=== PATIENT | female | born 1975 | race Caucasian/White ===

== ENCOUNTER 2024-10-03 15:29 | Outpatient (CLI) | payer BC, SELFPAY ==
--- NOTE | ~2024-10-03 | MR_ITS ---
MR breast BI wo/w con 10/08/2024 10:32 BRASS AND WIND INSTRUMENT REPAIRER INDICATION: High risk for breast cancer. History of right breast biopsy. TECHNIQUE: MRI of the breasts perform using standard protocol pre-and post IV contrast with the follo wing sequences: Axial T2 STIR, axial T1, axial vibrant T1 with fat suppression precontrast and multip hasic postcontrast. COMPARISON: Comparison to multiple prior studies sequentially, with oldest reviewed study dated 07/04. FINDINGS: Right breast: There are no abnormalities on the precontrast sequences. There is minimal александр kground parenchymal enhancement. There is a focal area of fat containing a tissue marker in the media l aspect of the right breast corresponding to prior lumpectomy site, most likely benign fat necrosis. No enhancing lesions following contrast administration. No areas of enhancement meeting threshold c riteria on CAD analysis. No evidence of signal abnormalities in the axillary or internal mammary nod e distributions. LEFT BREAST: No signal abnormalities on precontrast sequences. There is minimal background parenchym al enhancement. No enhancing lesions following contrast administration. No areas of enhancement me eting threshold criteria on CAD analysis. No evidence of signal abnormalities in the axillary or in ternal mammary node distributions.] IMPRESSION: 1: Right breast: Negative. No evidence of malignancy. BI-RADS category 2. Recommend annual mammo graphy follow-up. 2: Left breast: Negative. No evidence of malignancy. BI-RADS category 1. Recommend annual mammogr aphy follow-up. Follow-up MRI may be useful for supplementing mammographic evaluation as clinically indicated. Reviewed, dictated and finalized at location B. S AND WIND INSTRUMENT REPAIRER IMPRESSION: 1: Right breast: Negative. No evidence of malignancy. BI-RADS category 2. Recommend annual mammography follow-up. 2: Left breast: Negative. No evidence of malignancy. BI-RADS category 1. Re commend annual mammography follow-up. Follow-up MRI may be useful for supplementing mammographic evaluation as clinic ally indicated.
== END 2024-10-03 15:30 | disposition home or self-care (01) ==
PROVIDERS: PCP Nurse Practitioner; Visit Provider Surgery
DX: Z12.31 Encounter for screening mammogram for malignant neoplasm of breast (principal); Z98.890 Other specified postprocedural states; N60.91 Unspecified benign mammary dysplasia of right breast; N64.89 Other specified disorders of breast
CPT/HCPCS: 77049; A9577; C8908

== ENCOUNTER 2025-03-14 08:14 | Outpatient (CLI) | payer OTHER, SELFPAY ==
--- NOTE | ~2025-03-14 | MM_ITS ---
EXAMINATION: MM screening [facility] BI [facility] [place] HISTORY: Screening TECHNIQUE: Craniocaudal and mediolateral oblique 3-D tomosynthesis images were obtained and synthetic 2-D images were generated. CAD analysis was submitted and interpreted. COMPARISON: Comparison to multiple prior studies sequentially, with oldest reviewed study dated 07/04. BREAST PARENCHYMAL COMPOSITION: Not dense: There are scattered areas of fibroglandular density. FINDINGS: There is an area of fat necrosis in the lower inner quadrant of the right breast. There is no evidence of suspicious mass, calcification, or architectural distortion to suggest malignancy in e ither breast. There has been no suspicious interval change. IMPRESSION: 1. No mammographic evidence of malignancy. 2. Recommend routine screening mammography in one year. BI-RADS Category 2: Benign finding(s). Reviewed, dictated and finalized at location A.
--- OUTSIDE RECORDS SUMMARY | 2025-03-14 08:22 | XMS_ITS ---
Author Organization [facility] Address [address] [place], [place] [address] Care Team Providers Care Cook Railroad Name Role Phone SATURNINO SULAIMAN Unavailable [phone] Mary Howell Unavailable Unavailable REASON FOR VISIT orthotics Medications Medication SIG (Take, Route, Frequency, Duration) Notes Start Date End Date Status Wellbutrin Active Topamax Active B Complete Active Vital Signs Height 67 in 05/07/2024 Height-cm 170.18 cm 05/07/2024 Encounters Encounter Location Date Provider Diagnosis [facility] [address] [place], [place] [id number] 05/07/2024 SULAIMAN HERNANDEZ Posterior tibial tendinitis of left lower extremity M76.822 ; Hallux valgus (acquired), left foot M20.12 ; Flat foot [pes planus] (acquired), right foot M21.41 ; Pain in left foot M79.672 and Pain in right foot M79.671 Assessments Encounter Date Diagnosis (ICD Code) Assessment Notes Treatment Notes Treatment Clinical Notes Section Notes 05/07/2024 Posterior tibial tendinitis of left lower extremity (ICD-10 - M76.822) 05/07/2024 Hallux valgus (acquired), left foot (ICD-10 - M20.12) 05/07/2024 Flat foot [pes planus] (acquired), right foot (ICD-10 - M21.41) 05/07/2024 Pain in left foot (ICD-10 - M79.672) 05/07/2024 Pain in right foot (ICD-10 - M79.671) 05/07/2024 Other Orthotic casting: The patient was casted for functional orthotic devices. This was done in the subtalar joint neutral position in a non-weightbeari ng fashion. The patient will follow-up in 3 weeks time to be dispensed and fitted with the devices. Plan Of Treatment Treatment Notes Assessment Notes Other Orthotic casting: Th e patient was casted for functional orthotic devices. This was done in the subtalar joint neutral position in a non-weightbearing fashion. The patient will follow-up in 3 weeks time to be dispensed and fitted with the devices. Progress Notes * LYLEIshaDOB:1975 (49 yo F)Acc No.[id number]:05/07/2024 Patient: Isha FORTE Provider: Mady Hernandez DPM :1975 A ge:48 Y S ex:Female Date:05/07/2024 Address: [address] [place], [place] [id number] Subjective: * Chief Complaints: * O rthotics * HPI: H PI: Follow Up Visit P atient presents for follow-up visit for orthotics. Patient was given X-rays at the last visit and was recommended orthotics, but she needed to call her insurance first. Patient states that insurance will not pay for them if they say flat feet so she would like to talk about that with the doctor. MA: carlos. * ROS: G eneral / Constitutional: Patient denies c hills, fever. E ndocrine: Patient denies e xcessive thirst, frequent urination. ? C ardiovascular: Patient denies s hortness of breath, chest pain. S kin: Patient denies m ole changes. * Medical History: * Surgical History: G all Bladder Breast Lump Removed appendectomy * Hospitalization/Major Diagno stic Procedure: * Family History: F ather: alive, diagnosed with Heart disease. M other: alive. * Medications: T akingB Complete Topamax Wellbutrin Medication List reviewed and reconciled with the patientTaking B Complete Taking Topamax Taking Wellbutrin Medication List reviewed and reconciled with the patient Objective: * Vitals: H t: 67 in, Ht-cm: 170.18 cm. * Examination: P hysical Examination: Gen: T he patient is awake, alert, well developed, well groomed and well nourished. They are in no apparent distress. . Musc: F oot structure is planus . No abnormalities noted. Muscle strength is 5/5 to all joints bilaterally. Pain on palpation of left posterior tibial tendon. Limited range of motion noted at the first metatarsal phalangeal joint. Unable to perform single leg toe raise.. Derm: S kin is warm and dry, with no rashes, good skin turgor and normal hair distribution. . Neuro: G rossly intact to light touch bilateral.. Vasc: D orsalis pedis and posterior tibial pulses 2+ bilaterally. No edema noted. Capillary fill time < 3 seconds to all digits. . X -Ray: LEFT FOOT T here is no evidence of fracture, dislocation, or other osseous lesions. X-rays reveal an increased 1st intermetatarsal angle, lateral deviation of the hallux, lateral displacement of the sesamoids, and an enlarged medial prominence. . ? Assessment: * Assessment: 1. P osterior tibial tendinitis of left lower extremity - M76.822 (Primary) 2 .?Hallux valgus (acquired), left foot - M20.12 3 . F lat foot [pes planus] (acquired), right foot - M21.41 4 . P ain in left foot - M79.672 5 . P ain in right foot - M79.671 Plan: * Treatment: * Procedure Codes: 7 3630 X-RAY EXAM OF FOOT, Modifiers: LT L1902 AFO ANK GAUNTLT PREFAB W/FIT&ADJ, Modifiers: LT , [id number] FT INSRT REMV MOLD LNGTUDNL SUPP EA, Modifiers: RT , [id number] FT INSRT REMV MOLD LNGTUDNL SUPP EA, Modifiers: LT , GA * Billing Information: * Visit Code: 25685 Office Visit, New Pt., Level 3. * Procedure Codes: 01942 X-RAY EXAM OF FOOT. Modifiers: LT L1902 AFO ANK GAUNTLT PREFAB W/FIT&ADJ. Modifiers: LT, GA L3020 FT INSRT REMV MOLD LNGTUDNL SUPP EA. Modifiers: RT, GA L3020 FT INSRT REMV MOLD LNGTUDNL SUPP EA. Modifiers: LT, GA * Sign off status: Completed true * Provider: Mady Hernandez DPM Date: 0 05/07/2024 Generated for Raffi infante/Tami/Shereen on: 0 03/14/2025 08:22 AM CDT History and Physical Notes * HPI (History of Present Illness) Category Sub-Category Detail Notes Category Not es HPI Follow Up Visit Patient presents for follow-up visit for orthotics. Patient was given X-rays at the last visit and was recommended orthotics, but she needed to call her insurance first. Patient states that insurance will not pay for them if they say flat feet so she would like to talk about that with the doctor. MA: mca Examination Category Sub-Category Detail Notes Category Not es X-Ray LEFT FOOT There is no evid ence of fracture, dislocation, or other osseous lesions. X-rays reveal an increased 1st intermetatarsal angle, lateral deviation of the hallux, lateral displacement of the sesamoids, and an enlarged medial prominence. Physical Examination Gen: The patient is awake, alert, well developed, well groomed and well nourished. They are in no apparent distress. Vasc: Dorsalis pedis and p osterior tibial pulses 2+ bilaterally. No edema noted. Capillary fill time < 3 seconds to all digits. Neuro: Grossly intact to li ght touch bilateral. Musc: Foot structure is pl anus . No abnormalities noted. Muscle strength is 5/5 to all joints bilaterally. Pain on palpation of left posterior tibial tendon. Limited range of motion noted at the first metatarsal phalangeal joint. Unable to perform single leg toe raise. Derm: Skin is warm and dry , with no rashes, good skin turgor and normal hair distribution.
--- OUTSIDE RECORDS SUMMARY | 2025-03-14 08:22 | XMS_ITS | Encounter Summary ---
Author Organization [facility] Address [facility] [place] [address] Care Team Providers Care Mechanical Applications Engineer Name Role Phone Mary Howell NP Primary Care Provider [phone] Encounter Details Date Type Department Care Team (Late st Contact Info) Description 07/04/2024 Quantuvis Message Enc [facility] Family Medicine - [place] [address] [place], [place] [address] Mary Howell NP [address] [place], [place] [address] Prescription dosage Social History Tobacco Use Types Packs/Day Years Used Date Smoking Tobacco: Never Passive Smoke Exposure: Current Smokeless Tobacco: Never Alcohol Use Standard Drinks/Week Comments Not Currently 0 (1 standard drink = 0.6 oz pur e alcohol) Very Rare PHQ-2 Answer Date Recorded Patient Health Questionnaire-2 Score 3 04/13/2024 Comments No Sex and Gender Information Value Date Recorded Sex Assigned at Not on file Legal Sex Female 6:30 PM CDT Gender Identity Not on file Sexual Orientation Not on file documented as of this encounter Plan of Treatment Not on file documented as of this encounter Visit Diagnoses Not on filedocumented in this encounter Additional Health Concerns Assessment Noted Time PHQ-9 Depression Total Score: 13 024 10:14 AM CDT documented as of this encounter Care Teams Mechanical Applications Engineer Relationship Specialty Start Date End Date Mary Howell NP [address] [place], [place] [address] PCP - General NURSE PRACTITIONER 04/14/23 documented as of this encounter
--- OUTSIDE RECORDS SUMMARY | 2025-03-14 08:22 | XMS_ITS | Encounter Summary ---
Author Organization [facility] Address [facility] [place] [address] Care Team Providers Care General Service Technician Name Role Phone Mary Howell NP Primary Care Provider [phone] Encounter Details Date Type Department Care Team (Late st Contact Info) Description 09/13/2023 Backtrace I/Ot Message Enc [facility] Medical Group Family Medicine - [place] [address] [place], [place] [address] Mary Howell NP [address] [place], [place] [address] Surgeon follow up Social History Tobacco Use Types Packs/Day Years Used Date Smoking Tobacco: Never Passive Smoke Exposure: Current Smokeless Tobacco: Never Alcohol Use Standard Drinks/Week Comments Not Currently 0 (1 standard drink = 0.6 oz pur e alcohol) Very Rare PHQ-2 Answer Date Recorded Patient Health Questionnaire-2 Score 1 04/14/2023 Comments No Sex and Gender Information Value Date Recorded Sex Assigned at Not on file Legal Sex Female 6:30 PM CDT Gender Identity Not on file Sexual Orientation Not on file documented as of this encounter Plan of Treatment Not on file documented as of this encounter Visit Diagnoses Not on filedocumented in this encounter Care Teams General Service Technician Relationship Specialty Start Date End Date Mary Howell NP [address] [place], [place] [address] PCP - General NURSE PRACTITIONER 04/14/23 documented as of this encounter
--- OUTSIDE RECORDS SUMMARY | 2025-03-14 08:23 | XMS_ITS | Encounter Summary ---
Author Organization [facility] Address On license of [facility] [place] [address] Care Team Providers Care Slab Grinder Name Role Phone Mary Howell NP Primary Care Provider [phone] Encounter Details Date Type Department Care Team (Late st Contact Info) Description 05/14/2024 [email or web address] Message Enc [facility] Medical [facility] Family Medicine - [place] [address] [facility] [address] [place], [place] [phone] Mary Howell NP [address] [place], [place] [address] Naltrexone Social History Tobacco Use Types Packs/Day Years [...] documented as of this encounter Care Teams Slab Grinder Relationship Specialty Start Date End Date Mary Howell NP [address] [place] [address] PCP - General NURSE PRACTITIONER 04/14/23 documented as of this encounter
--- OUTSIDE RECORDS SUMMARY | 2025-03-14 08:23 | XMS_ITS | Encounter Summary ---
Author Organization [facility] Address [facility] [place] [address] Care Team Providers Care Boarding Room Fixer Name Role Phone Mary Howell NP Primary Care Provider [phone] Encounter Details Date Type Department Care Team (Late st Contact Info) Description 05/04/2023 Simris Algt Message Enc [facility] Medical [facility] Family Medicine - [place] [address] [facility] [address] [place] [phone] Mary Howell NP [address] [place], [place] [address] Mammogram Social History Tobacco Use Types Packs/Day Years Used Date Smoking Tobacco: Never Passive Smoke Exposure: Current Smokeless Tobacco: Never Alcohol Use Standard Drinks/Week Comments Yes 0 (1 standard drink = 0.6 oz pur e alcohol) Very Rare PHQ-2 Answer Date Recorded Patient Health Questionnaire-2 Score 1 04/14/2023 Comments No Sex and Gender Information Value Date Recorded Sex Assigned at Not on file Legal Sex Female 6:30 PM CDT Gender Identity Not on file Sexual Orientation Not on file COVID-19 Exposure Response Date Recorded In the last 10 days, have yo u been in contact with someone who was confirmed or suspected to have Coronavirus/COVID-19? No / Unsure 04/14/2023 12:36 PM CDT documented as of this encounter Plan of Treatment Not on file documented as of this encounter Visit Diagnoses Not on filedocumented in this encounter Care Teams Boarding Room Fixer Relationship Specialty Start Date End Date Mary Howell NP [address] [place] [address] PCP - General NURSE PRACTITIONER 04/14/23 documented as of this encounter
--- OUTSIDE RECORDS SUMMARY | 2025-03-14 08:23 | XMS_ITS ---
Author Organization [facility] Address [address] [place], [place] [address] Care Team Providers Care Statue Carver Name Role Phone RASULAIMAN SMITH Unavailable [phone] Mary Howell Unavailable Unavailable REASON FOR VISIT *Orthotic pick-up Medications Medication SIG (Take, Route, Frequency, Duration) Notes Start Date End Date Status Wellbutrin Active Topamax Active B Complete Active Encounters Encounter Location Date Provider Diagnosis [facility] [address] [place], [place] [id number] 05/31/2024 SULAIMAN HERNANDEZ Posterior tibial tendinitis of left lower extremity M76.822 ; Hallux valgus (acquired), left foot M20.12 ; Flat foot [pes planus] (acquired), right foot M21.41 ; Pain in left foot M79.672 and Pain in right foot M79.671 Assessments Encounter Date Diagnosis (ICD Code) Assessment Notes Treatment Notes Treatment Clinical Notes Section Notes 05/31/2024 Posterior tibial tendinitis of left lower extremity (ICD-10 - M76.822) Orthotic dispense: The orthotic devices were dispensed and fitted. It was noted that the orthotic conformed well to the patients foot in the subtalar joint neutral position. 05/31/2024 Hallux valgus (acquired), left foot (ICD-10 - M20.12) 05/31/2024 Flat foot [pes planus] (acquired), right foot (ICD-10 - M21.41) 05/31/2024 Pain in left foot (ICD-10 - M79.672) 05/31/2024 Pain in right foot (ICD-10 - M79.671) Plan Of Treatment Treatment Notes Assessment Notes Posterior tibial tendinitis of left lower extremity Orthotic dispense: The orthotic devices were dispensed and fitted. It was noted that the orthotic conformed well to the patients foot in the subtalar joint neutral position. Progress Notes * TIARRA IshaDOB:1975 (49 yo F)Acc No.[id number]:05/31/2024 Patient: Isha FORTE Provider: Mady Hernandez DPM :1975 A ge:48 Y S ex:Female Date:05/31/2024 [facility] Subjective: * Chief Complaints: * * Orthotic pick-up * HPI: H PI[facility] foot pain. She states she has been using the Trilok and it has helped a lot. She states she was scanned for orthotics last visit and is picking them up today. Patient states their problem is improving. MA: beverly. * ROS: G eneral / Constitutional: Patient [...] reconciled with the patient Objective: * Vitals: * Examination: P hysical Examination: Gen: T [...] < 3 seconds to all digits. . Assessment: * Assessment: 1. P osterior tibial tendinitis of left lower extremity - M76.822 (Primary) 2 .?Hallux valgus (acquired), left foot - M20.12 3 . F lat foot [pes planus] (acquired), right foot - M21.41 4 . P ain in left foot - M79.672 5 . P ain in right foot - M79.671 Plan: * Treatment: * Procedure Codes: * Billing Information: * Visit Code: 13243 Office Visit, Est Pt., Level 3. * Procedure Codes: * Sign off status: Completed true * Provider: Mady Hernandez DPM Date: 0 05/31/2024 Generated for Raffi Sequeira/Shereen on: 0 03/14/2025 08:23 AM CDT History and Physical Notes * HPI (History of Present Illness) Category Sub-Category Detail Notes Category Not es HPI Follow Up Visit Patient presents for follow-up visit for left foot pain. She states she has been using the Trilok and it has helped a lot. She states she was scanned for orthotics last visit and is picking them up today. Patient states their problem is improving. MA: sea Examination Category Sub-Category Detail Notes Category Not es Physical Examination Gen: The patient is awake, [...]
--- OUTSIDE RECORDS SUMMARY | 2025-03-14 08:23 | XMS_ITS ---
Author Organization [facility] Address [address] [place], [place] [address] Care Team Providers Care Watermelon Harvesting Supervisor Name Role Phone SULAIMAN HERNANDEZ Unavailable [phone] Mary Howell Unavailable Unavailable REASON FOR VISIT orthotics doing well Encounters Encounter Location Date Provider Diagnosis [facility] [address] [place], [place] [id number] 07/05/2024 SULAIMAN HERNANDEZ Plan Of Treatment No Information Progress Notes * LYLEIsha SKAGGSDOB:1975 (49 yo F)Acc No.[id number]:07/05/2024 Patient: Isha FORTE Provider: Mady Hernandez DPM :1975 A ge:48 Y S ex:Female Date:07/05/2024 Address:[address] [place] [id number] Subjective: * Chief Complaints: * 1 . Orthotics doing well. * Medical History: Objective: * Vitals: Assessment: Plan: * Treatment: * Billing Information: * Visit Code: * Procedure Codes: * Electronic signature of SULAIMAN HERNANDEZ DPM on 03/14/2025 at 08:22 AM CDT Sign off status: Pending * Provider: Mady Hernandez DPM Date: 07/05/2024 Generated for Raffi infante/Tami/eTbonnieitting on: 03/14/2025 08:22 AM JUAN MANUELT
--- OUTSIDE RECORDS SUMMARY | 2025-03-14 08:23 | XMS_ITS | Encounter Summary ---
Author Organization [facility] Address [facility] [place] [address] Care Team Providers Care Diesel Service Journeyman Name Role Phone Mary Howell NP Primary Care Provider [phone] Encounter Details Date Type Department Care Team (Late st Contact Info) Description 06/13/2023 Unomyt Message Enc [facility] Family Medicine - [place] [address] [facility] [address] [place], [place] [address] Mary Howell NP [address] [place], [place] [address] phentermine refill Social History Tobacco Use Types Packs/Day Years [...] on filedocumented in this encounter Care Teams Diesel Service Journeyman Relationship Specialty Start Date End Date Mary Howell NP [address] [place], [place] [address] PCP - General NURSE PRACTITIONER 04/14/23 documented as of this encounter
--- OUTSIDE RECORDS SUMMARY | 2025-03-14 08:23 | XMS_ITS | Patient Health Record ---
Author Organization [facility] Address [address] [place], [place] [id number] Care Team Providers Care Operational Assistant Name Role Phone YOSILILIANA SULAIMAN Unavailable [phone] Mary Howell Unavailable Unavailable Allergies No Known Allergies Reason For Referral No Information Medications Medication SIG (Take, Route, Frequency, Duration) Notes Start Date End Date Status Wellbutrin Active Topamax Active B Complete Active Vital Signs Height-cm 170.18 cm 05/07/2024 Weight-kg 138.35 kg 05/03/2024 Height 67 in 05/07/2024 Weight 305 lbs 05/03/2024 BMI 47.76 kg/m2 05/03/2024 Encounters Encounter Location Date Provider Diagnosis [facility] [address] [place], [place] [id number] 05/03/2024 SULAIMAN MATAMOROS Posterior tibial tendinitis of left lower extremity M76.822 ; Hallux valgus (acquired), left foot M20.12 ; Flat foot [pes planus] (acquired), right foot M21.41 ; Left foot pain M79.672 and Pain in right foot M79.671 [facility] [address] [place], [place] [id number] 05/07/2024 SULAIMAN MATAMOROS Posterior tibial tendinitis of left lower extremity M76.822 ; Hallux valgus (acquired), left foot M20.12 ; Flat foot [pes planus] (acquired), right foot M21.41 ; Pain in left foot M79.672 and Pain in right foot M79.671 [facility] [place] [id number] [place] [id number] 05/31/2024 SULAIMAN KNAPPSARAH Posterior tibial tendinitis of left lower extremity M76.822 ; Hallux valgus (acquired), left foot M20.12 ; Flat foot [pes planus] (acquired), right foot M21.41 ; Pain in left foot M79.672 and Pain in right foot M79.671 Assessments Encounter Date Diagnosis (ICD Code) Assessment Notes Treatment Notes Treatment Clinical Notes Section Notes 05/03/2024 Posterior tibial tendinitis of left lower extremity (ICD-10 - M76.822) 05/07/2024 Hallux valgus (acquired), left foot (ICD-10 - M20.12) 05/03/2024 Hallux valgus (acquired), left foot (ICD-10 - M20.12) 05/07/2024 Posterior tibial tendinitis of left lower extremity (ICD-10 - M76.822) 05/31/2024 Posterior tibial tendinitis of left lower extremity (ICD-10 - M76.822) Orthotic dispense: The orthotic devices were dispensed and fitted. It was noted that the orthotic conformed well to the patients foot in the subtalar joint neutral position. 05/31/2024 Hallux valgus (acquired), left foot (ICD-10 - M20.12) 05/03/2024 Flat foot [pes planus] (acquired), right foot (ICD-10 - M21.41) 05/07/2024 Flat foot [pes planus] (acquired), right foot (ICD-10 - M21.41) 05/03/2024 Left foot pain (ICD-10 - M79.672) 05/07/2024 Pain in left foot (ICD-10 - M79.672) 05/31/2024 Flat foot [pes planus] (acquired), right foot (ICD-10 - M21.41) 05/31/2024 Pain in left foot (ICD-10 - M79.672) 05/03/2024 Pain in right foot (ICD-10 - M79.671) 05/07/2024 Pain in right foot (ICD-10 - M79.671) 05/31/2024 Pain in right foot (ICD-10 - M79.671) 05/03/2024 Other Orthotic recommendation: Custom orthotics were recommended. A trilok ankle brace was dispensed for the pateint's left and the patient was instructed on it's use. 05/07/2024 Other Orthotic casting: The patient was casted for functional orthotic devices. This was done in the subtalar joint neutral position in a non-weightbeari ng fashion. The patient will follow-up in 3 weeks time to be dispensed and fitted with the devices. Plan Of Treatment No Information Insurance Providers Payer Name Payer Address Payer Phone Subscriber Number Group Number Insured Name Patient Relationship to Insured Coverage Start Date Coverage End Date [facility] ([facility]) ATTN CLAIMS [address] [place] [address] [id number] Isha Lyle Self - patient is the insured Medical (General) History Medical History History ICD Code acid reflux Surgical History Surgery Date(Month/Year) Gall Bladder Breast Lump Removed appendectomy
--- OUTSIDE RECORDS SUMMARY | 2025-03-14 08:23 | XMS_ITS | Clinical Summary ---
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 Active vitamin D3 (CHOLECALCIFEROL ) 25 mcg tablet Take 1 tablet (25 mcg total) by mouth daily. 2 Active B complex-C Cap capsule Take 1 capsule by mouth daily. Active rizatriptan (MAXALT) 5 MG tabletIndication s:Ocular migraine Take 1 tablet (5 mg total) by mouth as needed for Migraine. May repeat in 2 hours if needed times one dose 30 tablet 3 Active probiotic (FLORAJEN3) Cap capsule Take 1 capsule by mouth daily with breakfast. Active Berberine Chloride (BERBERINE HCI OR) Active Iron-Folic Acid-Vit B12 (IRON FORMULA OR) Active Levomefolate Glucosamine (METHYL-FOLATE OR) Active NON FORMULARY Mushroom complex Active Coenzyme Q10 (COQ10) 400 MG Cap Active Garlic 10 MG Cap Act ilda Green Tea 150 MG Cap Active MAGNESIUM OR Active topiramate (TOPAMAX) 50 MG TabIndications:O cular migraine TAKE 1 TABLET(50 MG) BY MOUTH TWICE DAILY 180 tablet 1 4 Active naltrexone (DEPADE) 50 MG tabletIndication s:Class 3 severe obesity with body mass index (BMI) of 45.0 to 49.9 in adult, unspecified obesity type, unspecified whether serious comorbidity present TAKE 1/2 TABLET ONCE DAILY FOR 2 WEEKS THEN INCREASE TO 1 TABLET DAILY 90 tablet 1 5 Active buPROPion XL (WELLBUTRIN XL) 300 MG 24 hr tabletIndication s:Class 3 severe obesity with body mass index (BMI) of 45.0 to 49.9 in adult, unspecified obesity type, unspecified whether serious comorbidity present,Anxiety TAKE 1 TABLET(300 MG) BY MOUTH DAILY 90 tablet 5 Active Active Problems Problem Noted Date Diagnosed Date Ocular migraine 04/14/2023 Vitamin D deficiency 04/14/2023 Class 3 severe obesity with body mass index (BMI) of 50.0 to 59.9 in adult, unspecified obesity type, unspecified whether serious comorbidity present 04/14/2023 Acid reflux 11/24/2015 Migraines 11/24/2015 Resolved Problems Problem Noted Date Diagnosed Date Resolved Date Elevated blood-pressure read ing without diagnosis of hypertension 06/27/2019 04/14/2023 Overview (06/27/2019): [facility] ED diagnosed patient on 06/09/2019 Immunizations Immunization Administration Dates Next Due Fluzone 6 Months+ Quad (0.5 mL Prefilled Syringe) 10/02/2019(Deferred: Patient Refused) MODERNA COVID-19 (12+) MRNA, LNP-S, PF, 100 MCG/ 0.5 ML DOSE 09/11/2021 Family History Medical History Relation Comments Deafness Father Double ByPass Father Heart Father Heart Disease Father Aneurysm Maternal Grandfather Hypertension Maternal Grandmother None Mother Unknown Paternal Grandfather Unknown Paternal Grandmother Breast Cancer Neg Hx Relation Status Comments Father Maternal Grandfather Maternal Grandmother Mother Paternal Grandfather Paternal Grandmother Social History Tobacco Use Types Packs/Day Years Used Date Smoking Tobacco: Never Passive Smoke Exposure: Current Smokeless Tobacco: Never Tobacco Cessation:Counseling Given: No Alcohol Use Standard Drinks/Week Comments Not Currently 0 (1 standard drink = 0.6 oz pur e alcohol) Very Rare PHQ-2 Answer Date Recorded Patient Health Questionnaire-2 Score 3 04/13/2024 Comments No Sex and Gender Information Value Date Recorded Sex Assigned at Not on file Legal Sex Female 6:30 PM CDT Gender Identity Not on file Sexual Orientation Not on file Last Filed Vital Signs Vital Sign Reading Time Taken Comments Blood Pressure 108/68 04/13/2024 10:08 AM CDT Pulse 78 04/13/2024 10:08 AM CDT Temperature 37.3 C (99.1 F) 04/13/2024 10:08 AM CDT Respiratory Rate 18 04/13/2024 10:08 AM CDT Oxygen Saturation 100% 04/13/2024 10:08 AM CDT Inhaled Oxygen Concentration - - Weight 139.7 kg (308 lb) 04/13/2024 10:08 AM CDT Height 168.9 cm (5' 6.5 ) 04/13/2024 10:08 AM CD T Body Mass Index 48.97 04/13/2024 10:08 AM CDT Plan of Treatment Health Maintenance Due Date Last Done Comments Cervical Cancer Screening Pa p Smear (Age 30 to 64) Every 3 Years 1974 Colorectal Cancer Screening Colonoscopy (10 Years) 1974 DTaP, Tdap and Td Vaccines ( 1 - Tdap) 1993 Hepatitis B Vaccines (1 of 3 - 19+ 3-dose series) 1993 Annual Physical 04/14/2024 04/14/2023 COVID-19 Vaccine (4 - 2023-2 5 season) 2024 08/16/2023, 09/11/2021, 01/15/2021 Pneumococcal Vaccine: 50+ Years (1 of 1 - PCV) 2024 Zoster Vaccines (1 of 2) 2024 PHQ-2 (Physician Peyton) 11/07/2024 04/13/2024 Mammogram Screening 02/02/2026 02/03/2024, 08/31/2023, 07/04/2023 Cervical Cancer Screening Pa p with HPV Testing (Age 30 to 64) Every 5 Years 01/09/2029 01/10/2024 Cervical Cancer Screening wi th HPV 01/09/2029 Hepatitis C Completed 04/22/2023 Meningococcal B Vaccine Aged Out No l onger eligible based on patient's age to complete this topic Meningococcal Vaccine Aged Out No debra catina eligible based on patient's age to complete this topic RSV Immunizations Under 20 Months Aged Out No longer eligible b ased on patient's age to complete this topic Procedures Procedure Name Priority Date/Time Associated Diagnosis Comments MG DIAG W BRADLEY BILAT DIGI Routine 02/03/2024 9:25 AM CDT Abnormal mammogram OUTSIDE CYTOPATH CERV/VAG INTERPRET (PAP) 01/10/2024 HEPATITIS C ANTIBODY W/RFX TO HCV RNA Routine 04/22/2023 6:25 AM CDT Need for hepatitis C screening test from Last 3 Months or Most Recently Relevant to Health Maintenance Results * MG DIAG W BRADLEY BILAT DIGI (02/03/2024 9:25 AM CDT) Anatomical Region Laterality Modality Breast Bilateral Mammography 02/03/2024 10:1 1 AM CDT Narrative 02/03/2024 10:13 AM CDT EXAMINATION: Digital bilateral diagnostic mammogram with 3-D tomography EXAM DATE/TIME: 02/03/2024 8:59 AM REASON FOR EXAM: Follow up Right-sided lumpectomy on 10/05/2023. Benign left-sided biopsy. COMPARISON: 07/04/2023. 08/31/2023. TECHNIQUE: Digital diagnostic mammography of both breasts was performed in addition to 3-D Tomosynthesis technique. This study was read with the assistance of a computer-aided detection system. TISSUE DENSITY: There are scattered areas of fibroglandular density. Findings: Interval lumpectomy in the medial and superior right breast with removal of prior biopsy clip. No gross adjacent abnormality. Left biopsy clip noted. Benign nodularity. Benign calcifications. No new focal asymmetry, dominant mass lesion, area of skin thickening, or cluster of suspicious appearing calcifications in either breast to suggest malignancy. =====IMPRESSION:===== No mammographic evidence of malignancy. ASSESSMENT: ACR BI-RADS 2 - BENIGN FINDING(S) Recommendation: 1: Routine Screening Bilateral COMMENTS: Ordered By: CAROLYN ROGERS Interpreted By: Oniel Mac, 02/03/2024 10:11 AM us Carolyn Rogers MD MAMMO Final Result * PAP SMEAR WITH HPV (01/10/2024) 01/10/2024 [facility] Scanned SCANNING Final Resu lt * HEPATITIS C ANTIBODY W/RFX TO HCV RNA (04/22/2023 6:25 AM CDT) HEPATITIS C AB NON-REACT ILDA NON-REACT ILDA [facility] SIGNAL TO CUTOFF 0.20 <1.00 [facility] Comment: HCV antibody was non-reactive. There is no laboratory evidence of HCV infection. In most cases, no further action is required. However, if recent HCV exposure is suspected, a test for HCV RNA (test code 65205) is suggested. For additional information please refer to http://education.Keko/faq/TBB38k7 (This link is being provided for informational/ educational purposes only.) 04/22/2023 6:25 AM CDT 04/22/2023 6:26 AM CDT Narrative [facility] [place] [facility] - 05/01/2023 11:42 PM CDT FASTING:YES FASTING: YES Resulting Agency Comment Performing Organization Information: Site ID: [id number] Name: [facility] Address: [address] [place] [address] Director: Gloria Singer MD Mary Howell NP LABORATORY Final Res ult [facility] [place] [facility] [id number] [facility] [place] [address] from Last 3 Months or Most Recently Relevant to Health Maintenance Insurance Care Teams Early Head Start Teacher Relationship Specialty Start Date End Date Mary Howell NP [address] [place] [id number] PCP - General NURSE PRACTITIONER 04/14/23
== END 2025-03-14 08:15 | disposition home or self-care (01) ==
PROVIDERS: PCP Nurse Practitioner; Visit Provider Surgery
DX: Z12.31 Encounter for screening mammogram for malignant neoplasm of breast (principal); N60.91 Unspecified benign mammary dysplasia of right breast; N64.89 Other specified disorders of breast; Z98.890 Other specified postprocedural states
CPT/HCPCS: 77063; 77067

== ENCOUNTER 2025-10-24 09:05 | Outpatient (CLI) | payer OTHER, SELFPAY ==
--- NOTE | ~2025-10-24 | MR_ITS ---
MR breast BI wo/w con INDICATION:50 year old female with increased risk for breast cancer who presents for high-risk screening bilateral breast MRI. Prior history of right breast biopsy. Most recent screening bilateral mammography completed on 03/14/2025 showed no evidence of malignancy in either breast. TECHNIQUE: MRI of the breasts perform using standard protocol pre-and post IV contrast with the following sequences: Axial T2 STIR, axial T1, axial vibrant T1 with fat suppression precontrast and multiphasic postcontrast. 20 cc MultiHance administered intravenously. COMPARISON: Mammogram and ultrasound dated 03/14/2025. FINDINGS: There is Scattered fibroglandular tissue that demonstrates Minimal and is Symmetric. Right breast: In the superior medial quadrant at middle depth at the right breast biopsy site, clumped nonmass enhancement has developed that measure 1.6 x 1.3 cm with areas of washout kinetics. There is also soft tissue thickening along the posterior wall of the biopsy cavity that demonstrates nonmass enhancement. There are no other abnormalities on the precontrast sequences. There is minimal background parenchymal enhancement. No other enhancing lesions following contrast administration. No areas of enhancement meeting threshold criteria on CAD analysis. Nipple areolar complex is normal in appe arance. No evidence of signal abnormalities in the axillary or internal mammary node distributions. LEFT BREAST: No signal abnormalities on precontrast sequences. There is minimal, mild, moderate, marked background parenchymal enhancement. No enhancing lesions following contrast administration. No areas of enhancement meeting threshold criteria on CAD analysis. The nipple areolar complex is normal in appearance. No evidence of signal abnormalities in the axillary or internal mammary node distributions.] IMPRESSION: 1: Right breast: New clumped nonmass enhancement along the superior and posterior wall of biopsy cavity in the superior medial quadrant. This finding may be related to evolving fat necrosis, however there is concern for development of a neoplastic lesion. Second Look ultrasound is advised. 2. Left breast: Negative. No evidence of malignancy. 3. The chest wall and axillary portion of the examination unremarkable. RECOMMENDATION: Second Look ultrasound of the right breast with attention to the superior medial biopsy cavity location. There is no correlating sonographic lesion, this MRI finding will be considered probably benign and 6 month follow-up breast MRI will be recommended. BI-RADS Category 0: Incomplete: Needs additional imaging evaluation. Reviewed, dictated and finalized at location A. 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 This finding may be related to evolving fat necrosis, however there is concern for development of a neoplastic lesion. Second Look ultrasound is advised. 2. Left breast: Negative. No evidence of malignancy. 3. The chest wall and axillary portion of the examination unremarkable. RECOMMENDATION: Second Look ultrasound of the right breast with attention to the superior media l biopsy cavity location. There is no correlating sonographic lesion, this MRI finding will be considered probably benign and 6 month follow-up breast MRI lulú l be recommended. BI-RADS Category 0: Incomplete: Needs additional imaging evaluation.
== END 2025-10-24 09:06 | disposition home or self-care (01) ==
PROVIDERS: PCP Nurse Practitioner; Visit Provider Surgery
DX: Z12.31 Encounter for screening mammogram for malignant neoplasm of breast (principal); N60.91 Unspecified benign mammary dysplasia of right breast; N64.89 Other specified disorders of breast; Z98.890 Other specified postprocedural states
CPT/HCPCS: 77049; A9577; C8908